=== PATIENT | female | born 1970 | race Caucasian/White ===

== ENCOUNTER → 2018-08-24 | Outpatient (CLI) | payer OTHER ==
[~2018-08-24] MED LIST: LIDOCAINE 1% 300 MG/30 ML SDV ONE
[2018-08-24 09:38] LABS: INR 0.99 (0.83-1.16); PROTIME(PATIENT) 13.3 SEC (12.0-15.0)
== END ==
LOC: FIMAGING 08:35
PROVIDERS: ATTEND Family Medicine
PROC: 009U3ZX Drainage of Spinal Canal, Percutaneous Approach, Diagnostic (ICD-10-PCS; principal; 2018-08-24)
DX: R51 Headache (principal)
CPT/HCPCS: 87798-90

== ENCOUNTER → 2018-10-14 | Outpatient (CLI) | payer OTHER | LOC: FIMAGING 09:48 | PROVIDERS: ATTEND Psychiatry & Neurology Neurology | DX: M54.81 Occipital neuralgia (principal); G44.059 Short lasting unilateral neuralgiform headache with conjunctival injection and tearing (SUNCT), not intractable; G43.809 Other migraine, not intractable, without status migrainosus; R42 Dizziness and giddiness; G43.709 Chronic migraine without aura, not intractable, without status migrainosus ==